=== PATIENT | male | born 1990 | race Caucasian/White ===

== ENCOUNTER 2017-10-03 15:21 | Emergency (ER) | payer BC ==
[~2017-10-03] VITALS: Ht 167.6 cm; Wt 77.3 kg
[2017-10-03 15:46] VITALS: Ht 167.6 cm; Wt 77.3 kg
[2017-10-03 20:25] VITALS: BP 137/85
== END 2017-10-03 21:05 | disposition left against medical advice (07) ==
LOC: D.ER 15:21
DX: R00.2 Palpitations (principal)